=== PATIENT | female | born 2000 | race African-American/Black ===

== ENCOUNTER 2023-11-03 10:30 | Outpatient (RCR) | payer OTHER, SELFPAY ==
--- NOTE | 2023-09-09 15:25 | OT.OP.EVAL ---
Visit Care Team Role Provider Type Elza Richard MD Family Provider Non-Staff Primary Care Provider Specialty: Medical Address: [address] [place] [address], [id number] Email: SUSANNAH Wright Attending Provider Non-Staff Referring Provider Specialty: Nursing Address: [facility], Fax: Email: Occupational Therapy Initial Evaluation OT Outpatient Adult Evaluation Start: 09/09/23 13:21 Freq: Status: Active Protocol: Document 09/09/23 13:22 AMS (Rec: 09/09/23 13:41 AMS [id number]) General Information - Adult Visit Number EVAL; 0/12 visits Plan of Care Dates 09/09/23 - 11/04/23 Insurance Information Prime; EVAL CHARGE ONLY; *Auth x 12 visits Visit Start Time 12:30 Visit Stop Time 13:15 Total Visit Minutes 45 Treatment Setting Outpatient Care Note Type Initial Evaluation Referring Physician Lisseth Salas MD Reason for Referral Bilateral hand pain x several months Identification Confirmed Yes Identification Confirmed By Self Goals Treatment Initiated home exercise program. Short Term Goals 1. Lois will demonstrate increased bilateral wrist flexion 1a. 55 degrees active R wrist flexion. 1b. 50 degrees active L wrist flexion. Retirement Goals 1. Lois will be modified independent with execution of home exercise program utilizing provided written/ visual instructions from therapist as needed. 2. Lois will present with increased ability to participate in meaningful activities in a variety of environments, as evidenced by the followina. Lois will indicate 2 or less out of 10 on the Pain Assessment Grid relative to bilateral palms/wrists. 2b. Lois will obtain a QuickDASH UE Outcome Measure Score of 25.00 or less. 2c. Lois will obtain a QuickDASH UE Work Module Score of 25.00 or less. 2d. Lois will demonstrate gains w/ office inspector/pinch strengthening, as evidenced by results of pinchometer and dynamometer strength testing. Assessment/Plan Treatment Assessment Lois is a 22 year-old right hand dominant female referred to outpatient OT secondary to ongoing bilateral hand pain (x several months). 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 Lois reports receiving ongoing outpatient PT (1 x a week for the past 6 months) secondary to bilateral shoulder, hip, knee and ankle pain/discomfort . Hand/Wrist Pain Assessment Grid was completed w/ indication of 4 out of 10 on the pain scale relative to the volar surfaces of bilateral wrists and radial/volar surfaces of palm, MCP -> proximal to carpals. Denied pain at night/waking up at night d/t pain. Pain presents mid day/towards end of the day . Denies weight lifting and utilizes LB strength w/ functional transfers. QuickDASH UE Outcome Measure = 47.73; QuickDASH UE Outcome Measure Work Module Score = 50 .00. Lois executes wrist/ finger stretches, massages her hands/fingers, and executes ball squeezes. (-) use of finger/hand splints. 43 degrees active R wrist flex vs 39 degrees active L wrist flex; 75 degrees active R wrist ext vs 70 degrees active L wrist ext; 15 degrees active bilateral wrist RD; 30 degrees active bilateral wrist UD. Dynamometer II findings w / elbows in 90 degrees flexion : 22.0# of force R office inspector ( compared to female 20-24 y.o. norm of 70.4 +/- 14.5) vs 7.0# of force L office inspector (compared to female 20-24 y.o. norm of 61.0 +/- 13.1). 8.0# of force R office inspector w/ elbow extended compared to 7.0# of force L office inspector w/ elbow extended. Pinchometer Findings: 5.5# of force R lateral hayden pinch ( compared to female 20-24 y.o. norm of 17.6 +/- 2.0) vs 3.0# of force L lateral hayden pinch ( compared to female 20-24 y.o. norm of 16.2 +/- 2.1); 2.5# of force R tip pinch (compared to female 20-24 y.o. norm of 11.1 +/- 2.1) vs 3.0# of force L tip pinch (compared to female 20-24 y.o. norm of 10.5 +/- 1.7); 3.5# of force R 3- jaw pinch (compared to female 20-24 y.o. norm of 17.2 +/- 2. 3) vs 3.0# of force L 3-jaw pinch (compared to female 20- 24 y.o. norm of 16.3 +/- 2.8). Mild intrinsic tightness. Opposition WNL although c/o pain w/ L thumb opposition to 5th digit. Cueing to discourage hyperextension at bilateral IPJs w/ resisted pinching/gripping. Lois would likely benefit from outpatient OT to add to current hand/wrist home exercise program, joint protection education, hand/ finger strengthening, modification/adaptive equipment/compensatory strategy education in order to support her ability to participate in meaningful activities in a variety of environments. Home Exercise Program 09/09/23 = Provided w/ medium firm green theraputty; discussion of storage of theraputty was performed. Rec use of putty 5-10 min as tolerated every other day or 3 x per week. Instructed in digit flexion/grasping of putty, pinching of putty/ lateral pinch, oppositional pinch w/ avoidance of hyperextension at the IPJs of bilateral thumbs. Length of treatment (weeks) 8 Plan of Care Start Date 09/09/23 Plan of Care End Date 11/04/23 Treatment Frequency Once a Week Therapeutic Contents Active Range of Motion, Adaptive Equipment Education, Client Education,Functional Activities,Home Exercise Program,Joint Protection, Manual Therapy,Education, Neurodevelopment Treatment, Neuromuscular Re-Education, Self-Care,Stretching/ Flexibility Activities, Therapeutic Activities, Therapeutic Exercises, Modalities Modalities As Needed,As Prescribed Additional Types of Modalities Heat/Ice/Contrast Baths/ Paraffin Bath/Ultrasound
--- NOTE | 2023-09-16 13:25 | OT.OP.TRT ---
Visit Care Team Role Provider Type Elza Richard MD Family Provider Non-Staff Primary Care Provider Specialty: Medical Address: [address] [place] [address], [id number] Email: SUSANNAH Wright Attending Provider Non-Staff Referring Provider Specialty: Nursing Address: [facility], Fax: Email: Occupational Therapy Treatment Note OT Outpatient Treatment Note - Adult Start: 09/09/23 13:21 Freq: Status: Active Protocol: Document 09/16/23 13:14 AMS (Rec: 09/16/23 13:25 AMS [id number]) OT Outpatient Adult Treatment Note Session Time Visit Start Time 12:25 Visit Stop Time 13:00 Total Visit Minutes 35 Visit Information Visit Number 09/17 Plan of Care Dates 09/09/23 - 11/04/23 Insurance Information Prime; EVAL CHARGE ONLY; *Auth x 12 visits Setting Treatment Setting Outpatient Care Visit Type Note Type Treatment Note General Information General Information Lois is a 22 year-old right hand dominant female referred to outpatient OT secondary to ongoing bilateral hand pain (x several months). 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 - Subjective Identification Type Name Observations Report of use of green theraputty; placing green putty in the refrigerator for increased resistance. Patient/Caregiver Compliance with Home Good Exercise Program - Objective Objective Measurements Please refer to below for progress towards meeting established OT goals: Short Term Goals 1. Lois will demonstrate increased bilateral wrist flexion 1a. 55 degrees active R wrist flexion. 1b. 50 degrees active L wrist flexion. Penitentiary Goals 1. Lois will be modified independent with execution of home exercise program utilizing provided written/ visual instructions from therapist as needed. 2. Lois will present with increased ability to participate in meaningful activities in a variety of environments, as evidenced by the followina. Lois will indicate 2 or less out of 10 on the Pain Assessment Grid relative to bilateral palms/wrists. 2b. Lois will obtain a QuickDASH UE Outcome Measure Score of 25.00 or less. 2c. Lois will obtain a QuickDASH UE Work Module Score of 25.00 or less. 2d. Lois will demonstrate gains w/ furniture mover helper/pinch strengthening, as evidenced by results of pinchometer and dynamometer strength testing. - Exercises 3 Descriptor Wrist stabilization. TB#3 loop. 2 x 10. 2 Descriptor TB wrist strengthening. Wrist extension. Completed bilaterally. TB#3. 2 x 10. Use of arm rest. Wrist flexion. Completed bilaterally. TB#3. 2 x 10. Use of arm rest. Wrist RD. Completed bilaterally. TB#3. 2 x 10. Use of arm rest. Wrist UD. Completed bilaterally. TB#3. 2 x 10. Use of TT 1 Descriptor UEB. x 7 minutes. Ceased exercise d/t hands cramping. - Assessment Assessment of Improvement Initiated TB#3 wrist strengthening exercises w/ use of arm rest for proximal UE support. Based on posturing/ flexing of hands/fingers, rec completion of 2 sets of 10 repetitions. Rec increasing to 3 sets of 10 reps -> 15 repetitions if tolerable/ personal schedule permits. Will need to monitor positioning of wrist w/ use of TB; set-up of theraband will likely become easier/quicker with increased use of the therapy tool. Upgraded finger/ hand strengthening and provided w/ firm blue theraputty. Rec providing written and visual instructions for wrist strengthening w/ use of TB. Overall, good session. Lois would likely benefit from outpatient OT to add to current hand/wrist home exercise program, joint protection education, hand/ finger strengthening, modification/adaptive equipment/compensatory strategy education in order to support her ability to participate in meaningful activities in a variety of environments. Home Exercise Program 09/16/23 = Provided w/ firm blue theraputty. Provided w/ TB#3 for home use for wrist strengthening. 09/09/23 = Provided w/ medium firm green theraputty; discussion of storage of theraputty was performed. Rec use of putty 5-10 min as tolerated every other day or 3 x per week. Instructed in digit flexion/grasping of putty, pinching of putty/ lateral pinch, oppositional pinch w/ avoidance of hyperextension at the IPJs of bilateral thumbs. - Plan Therapy Recommendations Continue with Current Program, Advance per Rehabilitation Protocol
--- NOTE | 2023-11-03 11:34 | OT.OP.DC ---
Visit Care Team Role Provider Type Elza Richard MD Family Provider Non-Staff Primary Care Provider Address: [address] [place] [address], [id number] Email: SUSANNAH Wright Attending Provider Non-Staff Referring Provider Address: [facility], Fax: Email: OT Outpatient OT Outpatient Adult Evaluation Start: 09/09/23 13:21 Freq: Status: Active Protocol: Document 09/09/23 13:22 AMS (Rec: 09/09/23 13:41 AMS [id number]) General Information - Adult Visit Information Visit Number EVAL; 0/12 visits Plan of Care Dates 09/09/23 - 11/04/23 Insurance Information Prime; EVAL CHARGE ONLY; *Auth x 12 visits Session Time Visit Start Time 12:30 Visit Stop Time 13:15 Total Visit Minutes 45 Setting Treatment Setting Outpatient Care Visit Type Note Type Initial Evaluation Referral Referring Physician Lisseth Salas MD Reason for Referral Bilateral hand pain x several months Identification Identification Confirmed Yes Identification Confirmed By Self Goals Treatment Treatment Initiated home exercise program. Short Term Goals Short Term Goals 1. Lois will demonstrate increased bilateral wrist flexion 1a. 55 degrees active R wrist flexion. 1b. 50 degrees active L wrist flexion. Long-Term Goals Long-Term Goals 1. Lois will be modified independent with execution of home exercise program utilizing provided written/ visual instructions from therapist as needed. 2. Lois will present with increased ability to participate in meaningful activities in a variety of environments, as evidenced by the followina. Lois will indicate 2 or less out of 10 on the Pain Assessment Grid relative to bilateral palms/wrists. 2b. Lois will obtain a QuickDASH UE Outcome Measure Score of 25.00 or less. 2c. Lois will obtain a QuickDASH UE Work Module Score of 25.00 or less. 2d. Lois will demonstrate gains w/ cement paver/pinch strengthening, as evidenced by results of pinchometer and dynamometer strength testing. Assessment/Plan Assessment Treatment Assessment Lois is a 22 year-old right hand dominant female referred to outpatient OT secondary to ongoing bilateral hand pain (x several months). 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 Lois reports receiving ongoing outpatient PT (1 x a week for the past 6 months) secondary to bilateral shoulder, hip, knee and ankle pain/discomfort . Hand/Wrist Pain Assessment Grid was completed w/ indication of 4 out of 10 on the pain scale relative to the volar surfaces of bilateral wrists and radial/volar surfaces of palm, MCP -> proximal to carpals. Denied pain at night/waking up at night d/t pain. Pain presents mid day/towards end of the day . Denies weight lifting and utilizes LB strength w/ functional transfers. QuickDASH UE Outcome Measure = 47.73; QuickDASH UE Outcome Measure Work Module Score = 50 .00. Lois executes wrist/ finger stretches, massages her hands/fingers, and executes ball squeezes. (-) use of finger/hand splints. 43 degrees active R wrist flex vs 39 degrees active L wrist flex; 75 degrees active R wrist ext vs 70 degrees active L wrist ext; 15 degrees active bilateral wrist [address]; 30 degrees active bilateral wrist UD. Dynamometer II findings w / elbows in 90 degrees flexion : 22.0# of force R cement paver ( compared to female 20-24 y.o. norm of 70.4 +/- 14.5) vs 7.0# of force L cement paver (compared to female 20-24 y.o. norm of 61.0 +/- 13.1). 8.0# of force R cement paver w/ elbow extended compared to 7.0# of force L cement paver w/ elbow extended. Pinchometer Findings: 5.5# of force R lateral hayden pinch ( compared to female 20-24 y.o. norm of 17.6 +/- 2.0) vs 3.0# of force L lateral hayden pinch ( compared to female 20-24 y.o. norm of 16.2 +/- 2.1); 2.5# of force R tip pinch (compared to female 20-24 y.o. norm of 11.1 +/- 2.1) vs 3.0# of force L tip pinch (compared to female 20-24 y.o. norm of 10.5 +/- 1.7); 3.5# of force R 3- jaw pinch (compared to female 20-24 y.o. norm of 17.2 +/- 2. 3) vs 3.0# of force L 3-jaw pinch (compared to female 20- 24 y.o. norm of 16.3 +/- 2.8). Mild intrinsic tightness. Opposition WNL although c/o pain w/ L thumb opposition to 5th digit. Cueing to discourage hyperextension at bilateral IPJs w/ resisted pinching/gripping. Lois would likely benefit from outpatient OT to add to current hand/wrist home exercise program, joint protection education, hand/ finger strengthening, modification/adaptive equipment/compensatory strategy education in order to support her ability to participate in meaningful activities in a variety of environments. Home Exercise Program 09/09/23 = Provided w/ medium firm green theraputty; discussion of storage of theraputty was performed. Rec use of putty 5-10 min as tolerated every other day or 3 x per week. Instructed in digit flexion/grasping of putty, pinching of putty/ lateral pinch, oppositional pinch w/ avoidance of hyperextension at the IPJs of bilateral thumbs. Plan Length of treatment (weeks) 8 Plan of Care Start Date 09/09/23 Plan of Care End Date 11/04/23 Treatment Frequency Once a Week Therapeutic Contents Active Range of Motion, Adaptive Equipment Education, Client Education,Functional Activities,Home Exercise Program,Joint Protection, Manual Therapy,Education, Neurodevelopment Treatment, Neuromuscular Re-Education, Self-Care,Stretching/ Flexibility Activities, Therapeutic Activities, Therapeutic Exercises, Modalities Modalities As Needed,As Prescribed Additional Types of Modalities Heat/Ice/Contrast Baths/ Paraffin Bath/Ultrasound Functional Wrist/Hand Scan Hand Side Sensory Assessment Sensory Profile2 OT Outpatient Treatment Note - Adult Start: 09/09/23 13:21 Freq: Status: Active Protocol: Document 11/03/23 11:12 AMS (Rec: 11/03/23 11:34 AMS [id number]) OT Outpatient Adult Treatment Note Session Time Visit Start Time 10:35 Visit Stop Time 11:05 Visit Information Visit Number 2 Plan of Care Dates 09/09/23 - 11/04/23 Insurance Information Prime; EVAL CHARGE ONLY; *Auth x 12 visits Setting Treatment Setting Outpatient Care Visit Type Note Type Treatment Note General Information General Information Lois is a 22 year-old right hand dominant female referred to outpatient OT secondary to ongoing bilateral hand pain (x several months). 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 - Subjective Identification Type Name Observations Report of use of putty. Report of discomfort primarily of 5th digits/pinkys. Also reported hand cramping and use of hot water/epsom salt w/ hot water. Report of having lab work done; (-) for RA. She reports that she is intending on pursuing real estate and [employer] licenses, thread winder automatic course work, and possible lab work vs nursing ( ?). Patient/Caregiver Compliance with Home Good Exercise Program - Objective Objective Measurements Please refer to below for progress towards meeting established OT goals: Short Term Goals 55 degrees active R wrist flexion. *MET 11/03/23 55 degrees active pain-free R wrist flex. 50 degrees active L wrist flexion. *MET 11/03/23 55 degrees active pain-free L wrist flex. Long-Term Goals Lois will be modified independent with execution of home exercise program utilizing provided written/ visual instructions. *MET 11/03 GOALS D/C 11/03/23 2. Lois will present with increased ability to participate in meaningful activities in a variety of environments, as evidenced by the followina. Lois will indicate 2 or less out of 10 on the Pain Assessment Grid relative to bilateral palms/wrists. 2b. Lois will obtain a QuickDASH UE Outcome Measure Score of 25.00 or less. 2c. Lois will obtain a QuickDASH UE Work Module Score of 25.00 or less. 2d. Lois will demonstrate gains w/ cement paver/pinch strengthening, as evidenced by results of pinchometer and dynamometer strength testing. - Exercises 5 Descriptor Red flexbar. 4 Descriptor Passive wrist ROM. Tendon glides. 3 Descriptor Wrist stabilization. TB#3 loop. 2 x 10. 2 Descriptor TB wrist strengthening. Wrist extension. Completed bilaterally. TB#3. 2 x 10. Use of arm rest. Wrist flexion. Completed bilaterally. TB#3. 2 x 10. Use of arm rest. Wrist RD. Completed bilaterally. TB#3. 2 x 10. Use of arm rest. Wrist UD. Completed bilaterally. TB#3. 2 x 10. Use of TT 1 Descriptor UEB. x 7 minutes. Ceased exercise d/t hands cramping. - Assessment Assessment of Improvement Based on feedback from Lois, it is recommended that she be referred to an UE specialist given that she would like to have further understanding re: the underlying reasons for her continued hand cramping, discomfort, and strength limitations. She reports that lab work has been done to r/o RA; she has not had additional diagnostic imaging. Lois has demonstrated some gains w/ pain-free active wrist range of motion and demonstrates no restrictions w/ tendon gliding and/or non-verbal signs of pain/discomfort w/ the glides/ wrist range of motion/and/or resistive distal UE exercises w/ ability to utilize blue, firm theraputty, TB#3 for wrist strengthening and red flex bar w/ no sets/reps limitations (of 3 x 10 w/ pronation/supination, wrist flex/ext horizontal orientation). Home Exercise Program 09/16/23 = Provided w/ firm blue theraputty. Provided w/ TB#3 for home use for wrist strengthening. 09/09/23 = Provided w/ medium firm green theraputty; discussion of storage of theraputty was performed. Rec use of putty 5-10 min as tolerated every other day or 3 x per week. Instructed in digit flexion/grasping of putty, pinching of putty/ lateral pinch, oppositional pinch w/ avoidance of hyperextension at the IPJs of bilateral thumbs. - Plan Therapy Recommendations Discharge from Occupational Therapy
== END 2023-11-08 10:21 | disposition home or self-care (01) ==
LOC: OT 10:30
PROVIDERS: Family Provider Student in an Organized Health Care Education/Training Program; PCP Student in an Organized Health Care Education/Training Program; Referring Provider Nurse Practitioner Family; Visit Provider Nurse Practitioner Family
DX: M79.643 Pain in unspecified hand (principal); R53.1 Weakness; R27.8 Other lack of coordination
CPT/HCPCS: 97110; 97165